=== PATIENT | male | born 1975 | race African-American/Black ===

== ENCOUNTER 2017-04-01 06:52 | Day surgery (SDC) | payer OTHER ==
[2017-04-01] MEDS ORDERED: WATER FOR IRRIG STERILE IR ONE (07:32)
[2017-04-01] MEDS ORDERED: WATER FOR IRRIG STERILE ONE (07:33)
[2017-04-01] MEDS ORDERED: NACL 0.9% 1000 ML 1,000 ML ONE (07:35)
--- NOTE | 2017-04-01 07:38 | Anesthesia Consultation ---
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 Does not speak enghlish, sister in law translated
--- NOTE | 2017-04-01 07:39 | Anesthesia Day of Surgery ---
Anesthesia Day of Surgery - Day of Surgery Patient Examined: Yes Patient H&P Reviewed: Yes Patient is NPO: Yes
[2017-04-01] MEDS ORDERED: DIPRIVAN 10 MG/ML IV ONE ×3 (08:20)
--- NOTE | 2017-04-01 09:13 | Post Operative Note ---
Date of procedure: 04/01/17 Pre-op diagnosis: cirrhosis (screen for varices), hematochezia Post-op diagnosis: other (EGD: grade I and II varices s/p banding, portal hypertensive gastropathy, hiatal hernia; colonoscopy: internal hemorrhoids) Findings: EGD: Esophagus: 2 columns of grade II (medium) sized varices without bleeding stigmata. 2 bands placed successfully; hiatal hernia Portal hypertensive gastropathy Colonoscopy: internal hemorrhoids, fair prep Procedure: EGD with banding of varices Colonoscopy Anesthesia: MAC Surgeon: PALMER DIAZ Estimated blood loss: none Pathology: none Condition: stable Disposition: same day
[2017-04-01 09:20] VITALS: BP 117/73
--- NOTE | 2017-04-01 09:35 | Operative Report ---
Operative Report Operative Report: Esophagogastroduodenoscopy with banding of varices Date of procedure: 04/01/2017 Endoscopist: Lonny Dennis Pre-op indication: cirrhosis, varices screening Post-op findings: Medium-sized esophageal varices, hiatal hernia, portal hypertensive gastropathy Anesthesia/Medications: MAC Estimated Blood Loss: minimal Complications: No immediate complications Procedure: After consent was obtained, the patent was placed in the left lateral decubitus position. The Fundgrazinginon upper endoscope was inserted into the patient's mouth under direct vision, and advanced to the 2nd portion of duodenum without difficulty. The views of the mucosa were good. The patient tolerated the procedure fairly well. The patient's vital signs were monitored continuously throughout the procedure. Findings: There were medium (grade II) sized esophageal varices in the lower third of the esophagus. There were no high risk bleeding stigmata. Two bands were placed successfully. There was a moderate-sized hiatal hernia. Mild portal hypertensive gastropathy in the gastric body. Mild erythematous mucosa in the antrum. The duodenum appeared normal Impression: 1. Medium sized esophageal varices s/p banding as above 2. Portal hypertensive gastropathy Recommendations: -continue propanolol daily -alcohol cessation -repeat endoscopy for variceal surveillance in 2 months
--- NOTE | 2017-04-01 09:40 | Operative Report ---
Operative Report Operative Report: COLONOSCOPY PROCEDURE REPORT Date of procedure: 04/01/2017 Endoscopist: Lonny Dennis Pre-op indication: hematochezia Post-op findings: internal hemorrhoids, fair prep Anesthesia/Medications: MAC Estimated Blood Loss: none Complications: No immediate complications Procedure: After consent was obtained, the patent was placed in the left lateral decubitus position. The fujinon colonoscope was inserted into the patient's rectum under direct vision, and advanced to the cecum without difficulty. The patient tolerated the procedure well. The views of the mucosa were fair. The quality of prep was fair. Findings: Internal hemorrhoids were seen on retroflexion view. Fair prep to cecum. Impression: 1. Internal hemorrhoids 2. Fair prep Recommendations: -hemorrhoidal suppository/cream as needed -follow-up in GI clinic as scheduled
--- NOTE | 2017-04-01 09:54 | Post Anesthesia Evaluation ---
- Post Anesthesia Evaluation Patient Participated: Yes Airway Patent: Yes Stable Respiratory Function: Yes Temp > 96.8F: Yes Pain Manageable: Yes Adequeate Hydration: Yes Anesthesia Complications: No
== END 2017-04-01 06:53 | disposition home or self-care (01) ==
LOC: GIO 06:52
PROVIDERS: ATTEND Internal Medicine Gastroenterology
DX: K92.1 Melena (principal); I85.00 Esophageal varices without bleeding; K76.6 Portal hypertension; K31.89 Other diseases of stomach and duodenum; K44.9 Diaphragmatic hernia without obstruction or gangrene; K74.60 Unspecified cirrhosis of liver; K64.8 Other hemorrhoids; I10 Essential (primary) hypertension; E03.9 Hypothyroidism, unspecified; E78.00 Pure hypercholesterolemia, unspecified; F10.10 Alcohol abuse, uncomplicated
CPT/HCPCS: 43244; 45378; J2704; J7030